=== PATIENT | male | born 1960 | race Caucasian/White ===

== ENCOUNTER 2025-08-25 10:30 | Inpatient (IN) | payer BC ==
[2025-08-25] VITALS (9 sets, daily range): BP systolic 117–156; BP diastolic 69–89; TEMP 97.9–98.8; O2SAT 89–96
[~2025-08-25] VITALS: Ht 188 cm; Wt 74.0 kg
[~2025-08-25 10:30] MED LIST: ADVA230A INH; ALBU8.5H INH; ATOR40TA75 PO; CETI-24 PO; IPRA0.00 NEB; LIDOCAINE 2% 100 MG/5 ML SDV (FOR ANES.) As Ordered ONE; LISI10TA22 PO; METF10004 PO; MIDAZOLAM INJ 2 MG/2 ML VIAL As Ordered ONE; PHENYLephrine 500MCG 5ML (100MCG/ML) SYRINGE As Ordered ONE; PRED20TA PO; ROCURONIUM BROMIDE 50MG/5ML VIAL As Ordered ONE; TAMS1CAP17 PO
[2025-08-25] MEDS ORDERED: LR 1,000 ML IV SCH (11:30)
[2025-08-25] MEDS: IPRATROPIUM 0.5 MG/ALBUTEROL 2.5 MG INH SOL UD 3 ML NEB ONE (12:00)
[2025-08-25] MEDS: ACETYLCYSTEINE 20% 4 ML VIAL (200 MG/ML) INH ONE (12:00)
[2025-08-25] MEDS ORDERED: GLUCOSE 4 GM CHEW PO PRN (12:20)
[2025-08-25] MEDS ORDERED: ALBUTEROL 90 MCG/ACT 8 GM HFA INHALER INH PRN (12:20)
[2025-08-25] MEDS ORDERED: DEXTROSE 50% 50 ML SYRINGE IV PRN (12:20)
[2025-08-25] MEDS ORDERED: ONDANSETRON 4MG 2ML VIAL IV PRN ×2 (12:20→15:50)
[2025-08-25] MEDS ORDERED: ACETAMINOPHEN 325 MG TAB PO PRN (12:20)
[2025-08-25] MEDS ORDERED: GLUCAGON INJ 1 MG VIAL SC PRN (12:20)
[2025-08-25] MEDS ORDERED: dexAMETHasone 4 MG/ML 1 ML VIAL As Ordered ONE (12:32)
[2025-08-25] MEDS: ceFAZolin SOD 2 GM IV ONCE IV ONE (12:42)
[2025-08-25] MEDS: HEPARIN SOD 5000 UNITS/ML 1 ML VIAL/SYRINGE SQ ONE (12:45)
[2025-08-25] MEDS ORDERED: HYDROmorphone HCL 2 MG/ML 1 ML VIAL As Ordered ONE (13:03)
[2025-08-25] MEDS ORDERED: ACETAMINOPHEN 1000MG/100ML IV BAG As Ordered ONE (13:04)
[2025-08-25] MEDS ORDERED: SUGAMMADEX SODIUM 200 MG/2 ML VIAL As Ordered ONE (14:18)
[2025-08-25] MEDS ORDERED: ONDANSETRON 4MG 2ML VIAL As Ordered ONE (14:18)
[2025-08-25] MEDS: LIDOCAINE 1% SDV 30 ML VIAL As Ordered ONE (15:44)
[2025-08-25] MEDS ORDERED: HYDROMORPHONE HCL 0.5 MG/0.5 ML SYRINGE IV PRN (15:50)
[2025-08-25 16:43] LABS: PLATELET COUNT, AUTOMATED 226 10^3/uL (150-450)
[2025-08-25] MEDS: INSULIN LISPRO (NovoLOG) PER UNIT SC PRN (16:53)
[2025-08-25 17:09] LABS: CALCIUM LEVEL 8.7 MG/DL (8.3-10.6); CARBON DIOXIDE LEVEL 29.0 MMOL/L (20-31); CHLORIDE LEVEL 103.0 MMOL/L (98-107); CREATININE FOR GFR 1.23 MG/DL (0.70-1.30); GLOMERULAR FILTRATION RATE 66.0 (>49); POTASSIUM SERUM 6.1 MMOL/L (3.5-5.1); SODIUM LEVEL 138.0 MMOL/L (136-145)
[2025-08-25] MEDS: INSULIN LISPRO (NovoLOG) PER UNIT SC SCH ×2 (17:30→20:14)
[2025-08-25] MEDS: NS (Normal Saline) 0.9% 1,000 ML IV SCH (17:30)
[2025-08-25] MEDS ORDERED: HOME MED LIST COMPLETE! XX SCH (17:40)
[2025-08-25] MEDS: COMBIVENT RESPIMAT 100-20 MCG INHALER 4 GM INH SCH (17:54)
[2025-08-25] MEDS: FUROSEMIDE 20 MG/2 ML VIAL IV ONE (18:03)
[2025-08-25] MEDS: ADVAIR HFA 230/21 MCG INHALER INH SCH (19:38)
[2025-08-25] MEDS: HEPARIN SOD 5000 UNITS/ML 1 ML VIAL/SYRINGE SC SCH (20:13)
[2025-08-25] MEDS: CETIRIZINE 10 MG TAB PO SCH (20:14)
[2025-08-25] MEDS: PERCOCET 5MG/325MG TAB PO PRN (20:14)
[2025-08-25] MEDS: ceFAZolin SOD 1 GM in DEXTROSE 5% (D5W) ADV/MINI-BAG 50 ML IV SCH (20:14)
[2025-08-25] MEDS: DOCUSATE SODIUM 100 MG CAPSULE PO SCH (20:14)
[2025-08-25] MEDS: ATORVASTATIN 20 MG TAB PO SCH (20:14)
[2025-08-25 21:11] LABS: CALCIUM LEVEL 8.5 MG/DL (8.3-10.6); CARBON DIOXIDE LEVEL 27.0 MMOL/L (20-31); CHLORIDE LEVEL 102.0 MMOL/L (98-107); CREATININE FOR GFR 1.09 MG/DL (0.70-1.30); GLOMERULAR FILTRATION RATE 76.3 (>49); POTASSIUM SERUM 5.1 MMOL/L (3.5-5.1); SODIUM LEVEL 139.0 MMOL/L (136-145)
[2025-08-26] VITALS (13 sets, daily range): BP systolic 111–148; BP diastolic 55–82; TEMP 97.2–98.8; O2SAT 82–94
[2025-08-26] MEDS: PERCOCET 5MG/325MG TAB PO PRN (05:52)
[2025-08-26 06:25] LABS: PLATELET COUNT, AUTOMATED 214 10^3/uL (150-450)
[2025-08-26 06:47] LABS: CALCIUM LEVEL 8.4 MG/DL (8.3-10.6); CARBON DIOXIDE LEVEL 32 MMOL/L (20-31); CHLORIDE LEVEL 102 MMOL/L (98-107); CREATININE FOR GFR 0.94 MG/DL (0.70-1.30); GLOMERULAR FILTRATION RATE > 90.0 (>49); POTASSIUM SERUM 4.7 MMOL/L (3.5-5.1); SODIUM LEVEL 139 MMOL/L (136-145)
[2025-08-26] MEDS ORDERED: PERCOCET PO (07:46)
[2025-08-26] MEDS ORDERED: COLA100C5 PO (07:46)
[2025-08-26] MEDS ORDERED: CIPR-249 PO (07:46)
[2025-08-26] MEDS: predniSONE 20 MG TAB PO SCH (08:00)
[2025-08-26] MEDS: SIMETHICONE 80MG CHEW TAB PO SCH (13:31)
[2025-08-26] MEDS ORDERED: PILL CUTTER 1 EACH XX ONE (13:38)
[2025-08-27] VITALS (8 sets, daily range): BP systolic 119–154; BP diastolic 71–102; TEMP 97.7–98.2; O2SAT 83–93
[2025-08-27 07:16] LABS: PLATELET COUNT, AUTOMATED 237 10^3/uL (150-450)
[2025-08-27 07:44] LABS: CALCIUM LEVEL 8.9 MG/DL (8.3-10.6); CARBON DIOXIDE LEVEL 32.0 MMOL/L (20-31); CHLORIDE LEVEL 100.0 MMOL/L (98-107); CREATININE FOR GFR 1.07 MG/DL (0.70-1.30); GLOMERULAR FILTRATION RATE 78.0 (>49); POTASSIUM SERUM 4.3 MMOL/L (3.5-5.1); SODIUM LEVEL 136.0 MMOL/L (136-145)
== END 2025-08-27 17:54 | disposition home or self-care (01) | DRG 484 ==
LOC: M SDC 10:30 → M MSPAV 17:00
PROVIDERS: ADMIT Urology; ATTEND Urology
PROC: 8E0W4CZ Robotic Assisted Procedure of Trunk Region, Percutaneous Endoscopic Approach (ICD-10-PCS; 2025-08-25)
PROC: 0VT04ZZ Resection of Prostate, Percutaneous Endoscopic Approach (ICD-10-PCS; principal; 2025-08-25 12:30)
DX: C61 Malignant neoplasm of prostate (principal); J44.9 Chronic obstructive pulmonary disease, unspecified; E11.9 Type 2 diabetes mellitus without complications